=== PATIENT | male | born 1995 | race Caucasian/White ===

== ENCOUNTER 2016-10-04 21:54 | Emergency (ER) | payer OTHER ==
[~2016-10-04] VITALS: Ht 180.3 cm; Wt 105.1 kg
[~2016-10-04 21:54] MED LIST: NOHOMEMEDS
[2016-10-05] MEDS ORDERED: SKELAXIN800 MG PO (01:10)
[2016-10-05] MEDS ORDERED: MOTRIN600 MG PO (01:10)
[2016-10-05 01:22] VITALS: BP 105/60
== END 2016-10-05 01:24 | disposition home or self-care (01) ==
LOC: EME 21:54
DX: S16.1XXA Strain of muscle, fascia and tendon at neck level, initial encounter (principal); G43.909 Migraine, unspecified, not intractable, without status migrainosus; V89.2XXA Person injured in unspecified motor-vehicle accident, traffic, initial encounter; M54.9 Dorsalgia, unspecified
CPT/HCPCS: 72125; 72128; 99281; 99284

== ENCOUNTER 2016-10-09 09:56 | Emergency (ER) | payer OTHER ==
[~2016-10-09] VITALS: Ht 180.3 cm; Wt 103.0 kg
[~2016-10-09 09:56] MED LIST changes: +MOTRIN600 MG PO; +SKELAXIN800 MG PO
[2016-10-09] MEDS ORDERED: MEDROL DOSEPAK4 MG PO (12:11)
[2016-10-09 12:23] VITALS: BP 137/86
== END 2016-10-09 12:24 | disposition home or self-care (01) ==
LOC: EME 09:56
DX: M54.42 Lumbago with sciatica, left side (principal)
CPT/HCPCS: 72110; 99281; 99284